=== PATIENT | female | born 1980 | race Caucasian/White ===

== ENCOUNTER 2017-09-07 12:17 | Inpatient (IN) | payer OTHER ==
[~2017-09-07] VITALS: Ht 157.5 cm; Wt 90.0 kg
[~2017-09-07 12:17] MED LIST: CETI10CA; DIPH-232; IBUP-1542 PO; LEVO200T45 PO; LEVO75TA5 PO; NAPR-260 PO; RABE20TA9; RANI300T; TERB250T9 PO; TRAM50TA2 PO
[2017-09-07 12:19] VITALS: Ht 157.5 cm; Wt 90.0 kg
[2017-09-07] MEDS ORDERED: KETOROLAC 15 MG INJ IV STA (12:26)
[2017-09-07] MEDS ORDERED: SOD CHLORIDE 0.9% 1,000 ML IV STA (12:26)
[2017-09-07] MEDS ORDERED: ONDANSETRON 4 MG INJ IV STA (12:26)
[2017-09-07] MEDS ORDERED: METOCLOPRAMIDE 10 MG INJ ONE (12:52)
[2017-09-07] MEDS ORDERED: METOCLOPRAMIDE 10 MG INJ IV ONE (13:00)
[2017-09-07 13:05] LABS: BASOPHILS % 0.2 % (0.0-2.0); EOSINOPHILS % 0.2 % (0.0-7.0); HEMATOCRIT 40.6 % (37.0-47.0); HEMOGLOBIN 13.2 g/dl (12.0-16.0); LYMPHOCYTES # 0.9 10^3/ul (0.8-2.9); LYMPHOCYTES % 8.5 % (15.0-51.0); MEAN CORPUSCULAR HEMOGLOBIN 30.5 pg (29.0-33.0); MEAN CORPUSCULAR HGB CONC 32.5 g/dl (32.0-37.0); MEAN CORPUSCULAR VOLUME 93.8 fl (82.0-101.0); MEAN PLATELET VOLUME 10.3 fl (7.4-10.4); MONOCYTE # 0.4 10^3/ul (0.3-0.9); MONOCYTES % 3.9 % (0.0-11.0); NEUTROPHIL # 9.3 10^3/ul (1.6-7.5); NEUTROPHILS % 86.8 % (39.0-77.0); NUCLEATED RED BLOOD CELLS% 0.2 /100WBC (0.0-0.0); PLATELET COUNT 260 10^3/UL (140-415); RED BLOOD COUNT 4.33 10^6/ul (4.20-5.40); RED CELL DISTRIBUTION WIDTH 13.2 % (11.5-14.5); WHITE BLOOD COUNT 10.7 10^3/ul (4.8-10.8)
[2017-09-07 13:25] LABS: ADD UMIC NO; UR ASCORBIC ACID 40 mg/dL (NEGATIVE); UR BILIRUBIN (Dip) NEGATIVE (NEGATIVE); UR BLOOD (Dip) NEGATIVE (NEGATIVE); UR CLARITY CLEAR (CLEAR); UR COLOR YELLOW (YELLOW); UR GLUCOSE (Dip) NEGATIVE (NEGATIVE); UR KETONES (Dip) 1+ mg/dL (NEGATIVE); UR LEUKOCYTE ESTERASE (Dip) NEGATIVE Leu/ul (NEGATIVE); UR NITRITE (Dip) NEGATIVE (NEGATIVE); UR SPECIFIC GRAVITY (Dip) 1.025 (1.003-1.030); UR TOTAL PROTEIN (Dip) NEGATIVE (NEGATIVE); UR UROBILINOGEN (Dip) NEGATIVE (NEGATIVE)
[2017-09-07 13:27] LABS: ALBUMIN 4.4 g/dl (3.3-4.9); ALBUMIN/GLOBULIN RATIO 1.29; BILIRUBIN,INDIRECT 0.8 mg/dl (0-1.1); BILIRUBIN,TOTAL 0.8 mg/dl (0.2-1.3); CREATININE 1.08 mg/dl (0.44-1.00); TOTAL PROTEIN 7.8 g/dl (6.1-8.1)
[2017-09-07 13:29] LABS: UR BACTERIA FEW /HPF (NONE SEEN); UR MUCUS FEW /HPF (NONE SEEN); UR RBC 6 /HPF (0-5); UR SQUAMOUS EPITHELIAL CELL FEW /HPF (FEW)
--- NOTE | 2017-09-07 13:37 | ERD ---
ER Documentation Chief Complaint Chief Complaint LEFT FLANK PAIN SEEN AT [facility] YESTERDAY HPI 37-year-old woman with a history of recent left ureter calculus presents with continued severe left flank pain and multiple episodes of clear nonbloody nonbilious emesis. And has had multiple previous imaging studies. She is usually treated with analgesics in the ED and discharged, she states she has not yet followed up with the urologist. She does have a history of chronic recurrent ureter stones. She denies fevers or chills, no chest pain or shortness of breath, no loss of consciousness. ROS All systems reviewed and are negative except as per history of present illness. Medications Home Meds Reported Medications Levothyroxine Sodium* (Levoxyl*) 200 Mcg Tablet, 200 MCG PO DAILY 02/03/12 Naproxen* (Naprosyn*) 500 Mg Tablet, 500 MG PO BID 02/03/12 Tramadol HCl (Tramadol HCl) 50 Mg Tablet, 50 MG PO Q8 02/03/12 Ibuprofen* (Ibuprofen*) 600 Mg Tablet, 600 MG PO BID 08/26/11 Levothyroxine Sodium* (Levothyroxine Sodium*) 75 Mcg Tablet, 75 MCG PO DAILY 08/26/11 Terbinafine Hcl* (Terbinafine Hcl*) 250 Mg Tablet, 250 MG PO DAILY 08/26/11 Cetirizine Hcl* (Zyrtec*) 10 Mg Capsule 03/25/11 Diphenoxylate Hcl-Atropine (Lomotil) 1 Tab Tablet 03/25/11 Ranitidine Hcl* (Ranitidine Hcl*) 300 Mg Tablet 11/12/10 Rabeprazole Sodium* (Aciphex*) 20 Mg Tablet. 11/12/10 Allergies Allergies: Coded Allergies: Acetaminophen (Verified Allergy, Mild, 02/03/12) Latex (Verified Allergy, Mild, 02/03/12) Oxycodone (Verified Allergy, Mild, RASH, 02/03/12) Uncoded Allergies: CHLORAPREP (Allergy, Intermediate, RASH, 03/25/11) PMhx/Soc Goiter status post thyroidectomy, obesity, chronic pain syndrome, opioid dependence, previous hysterectomy and cholecystectomy, chronic left ureter stone measuring 7 x 5 mm History of Surgery: Yes (THYROIDECTOMY 08/09,HYSTERECTOMY,CHOLI., FOOT SURG X2) Anesthesia Reaction: Yes (NAUSEA) Hx Neurological Disorder: No Hx Respiratory Disorders: No Hx Cardiac Disorders: No Hx Psychiatric Problems: No Hx Miscellaneous Medical Probl: No Hx Alcohol Use: No Hx Substance Use: No Hx Tobacco Use: Yes (CIEG. 1PKG EVERY 2 DAYS) FmHx Family History: No diabetes Physical Exam Vitals Vital Signs Date Time Temp Pulse Resp B/P Pulse Ox O2 Delivery O2 Flow Rate FiO2 09/07/17 14:52 96 18 123/81 100 Room Air 09/07/17 13:08 95 17 148/78 100 Room Air 09/07/17 12:19 98.1 80 18 130/78 99 Physical Exam GENERAL: Well-developed, well-nourished, well-hydrated, crying, afebrile HEENT: Moist mucous membranes, pink conjunctiva, no cervical spine tenderness or step-off deformities, no goiter, no jaundice or icterus, extraocular movements intact without pain. No submandibular induration, and no pharyngeal erythema NEURO: Alert and oriented 3, cranial nerves II through XII intact bilaterally, pupils equal round reactive to light, no focal deficits or facial asymmetry, sensation intact distally Strength 5/5 in upper and lower extremities bilaterally CARDIAC: Regular rate and rhythm, no murmurs rubs or gallops LUNGS: Clear bilaterally no wheezing crackles or stridor ABDOMEN: Soft nontender, no guarding, no rigidity, no rebound, no psoas sign no obturator sign. Normoactive bowel sounds SKIN: Warm and dry to touch, no abrasions, contusions, or hematomas, no lacerations, no ecchymosis, no target lesions, and without ulcers EXTREMITIES: No clubbing cyanosis or edema, calves are bilaterally symmetrical, no Homans sign, no popliteal cord sign. Distal pulses equal and bilateral PSYCH: Anxious and crying Result Diagram: 09/07/17 1245 09/07/17 1245 Results 24 hrs Laboratory Tests Test 09/07/17 12:45 White Blood Count 10.710^3/ul Red Blood Count 4.3310^6/ul Hemoglobin 13.2g/dl Hematocrit 40.6% Mean Corpuscular Volume 93.8fl Mean Corpuscular Hemoglobin 30.5pg Mean Corpuscular Hemoglobin Concent 32.5g/dl Red Cell Distribution Width 13.2% Platelet Count 02344^3/UL Mean Platelet Volume 10.3fl Neutrophils % 86.8% Lymphocytes % 8.5% Monocytes % 3.9% Eosinophils % 0.2% Basophils % 0.2% Nucleated Red Blood Cells % 0.2/100WBC Neutrophils # 9.310^3/ul Lymphocytes # 0.910^3/ul Monocytes # 0.410^3/ul Eosinophils # 0.010^3/ul Basophils # 0.010^3/ul Nucleated Red Blood Cells # 0.010^3/ul Urine Color YELLOW Urine Clarity CLEAR Urine pH 6.0 Urine Specific [place] 1.025 Urine Ketones 1+mg/dL Urine Nitrite NEGATIVEmg/dL Urine Bilirubin NEGATIVEmg/dL Urine Urobilinogen NEGATIVEmg/dL Urine Leukocyte Esterase NEGATIVELeu/ul Urine Microscopic RBC 6/HPF Urine Microscopic WBC 2/HPF Urine Squamous Epithelial Cells FEW/HPF Urine Bacteria FEW/HPF Urine Mucus FEW/HPF Urine Hemoglobin NEGATIVEmg/dL Urine Glucose NEGATIVEmg/dL Urine Total Protein NEGATIVEmg/dl Sodium Level 145mmol/L Potassium Level 4.0mmol/L Chloride Level 108mmol/L Carbon Dioxide Level 24mmol/L Anion Gap 17 Blood Urea Nitrogen 11mg/dl Creatinine 1.08mg/dl Glucose Level 102mg/dl Calcium Level 9.0mg/dl Total Bilirubin 0.8mg/dl Direct Bilirubin 0.00mg/dl Indirect Bilirubin 0.8mg/dl Aspartate Amino Transf (AST/SGOT) 71IU/L Alanine Aminotransferase (ALT/SGPT) 154IU/L Alkaline Phosphatase 126IU/L Total Protein 7.8g/dl Albumin 4.4g/dl Globulin 3.40g/dl Albumin/Globulin Ratio 1.29 Lipase 60U/L Free Thyroxine 1.10ng/dl Current Medications Medications (Trade) Dose Ordered Sig/Juana Route PRN Reason Start Time Stop Time Status Last Admin Dose Admin Sodium Chloride (NS) 1,000 ml @ 1,000 mls/hr Q1H STAT IV 09/07/17 12:26 09/07/17 13:25 DC 09/07/17 13:09 Ondansetron HCl (Zofran Inj) 4 mg ONCE STAT IV 09/07/17 12:26 09/07/17 12:55 DC Ketorolac Tromethamine (Toradol) 15 mg ONCE STAT IV 09/07/17 12:26 09/07/17 12:27 DC 09/07/17 13:09 Metoclopramide HCl (Reglan) 10 mg STK-MED ONCE .ROUTE 09/07/17 12:52 09/07/17 12:53 DC Metoclopramide HCl (Reglan) 10 mg ONCE ONCE IV 09/07/17 13:00 09/07/17 13:01 DC 09/07/17 13:09 IV Flush (NS 3 ml) 3 ml PER PROTOCOL IV 09/07/17 14:30 Ondansetron HCl (Zofran Inj) 4 mg Q6H PRN IV NAUSEA AND/OR VOMITING 09/07/17 14:30 Acetaminophen (Tylenol Tab) 650 mg Q6H PRN PO PAIN LEVEL 1-3 OR FEVER 09/07/17 14:30 Acetaminophen/ Hydrocodone Bitart ([place] (5/325)) 1 tab Q6H PRN PO MODERATE PAIN LEVEL 4-6 09/07/17 14:30 Morphine Sulfate (morphine) 2 mg Q4H PRN IV SEVERE PAIN LEVEL 7-10 09/07/17 14:30 09/07/17 14:47 Docusate Sodium (Colace) 100 mg Q12H PRN PO CONSTIPATION 09/07/17 14:30 Magnesium Hydroxide (Milk Of Mag) 30 ml DAILY PRN PO CONSTIPATION 09/07/17 14:30 Sodium Biphosphate/ Sodium Phosphate (Fleet Enema) 133 ml DAILY PRN [place] CONSTIPATION 09/07/17 14:30 Heparin Sodium (Porcine) (Heparin (5000 Units/0.5 ml)) 5,000 unit Q12 SC 09/07/17 21:00 09/07/17 21:00 DC Lorazepam (Ativan) 0.5 mg Q6H PRN IV ANXIETY 09/07/17 14:30 Albuterol/ Ipratropium (Duoneb) 3 ml Q4H RESP THERAPY PRN HHN SHORTNESS OF BREATH 09/07/17 14:30 Nitroglycerin (Nitroglycerin (Sl Tab) 0.4 Mg) 1 tab Q5M PRN SL ANGINA 09/07/17 14:30 Levothyroxine Sodium (Synthroid) 75 mcg DAILY@06 PO 09/08/17 06:00 Ranitidine HCl (Zantac) 150 mg BID PO 09/07/17 21:00 Tramadol HCl 50 mg 50 mg Q8 PRN PO PAIN 09/07/17 14:30 Sodium Chloride 1,000 ml @ 100 mls/hr Q10H IV 09/07/17 14:30 09/07/17 15:00 DC Dextrose/Sodium Chloride (D5-NS) 1,000 ml @ 100 mls/hr Q10H IV 09/07/17 15:00 Nicotine (Nicoderm 14 Mg/ 24hr) 1 patch DAILY TRANSDERM 09/08/17 09:00 Mupirocin (Bactroban) 1 applic BID TOP 09/07/17 21:00 Trimethobenzamide HCl (Tigan) 200 mg Q6H PRN IM NAUSEA AND/OR VOMITING 09/07/17 16:30 Procedures/MDM IV line was established patient was placed on strategic account executive rhythm strip revealed a sinus rhythm at about 80 bpm with upright P and T waves. Patient was afebrile I administered 1 L normal saline intravenously, Toradol 15 mg IV, Reglan 10 mg IV. I reviewed CT scan report that Jen had in her possession. It was dated September 06 2017 and revealed a urinary calculus at the left UPJ measuring 7 x [address] scan imaging and ultrasound reports revealed hydronephrosis and left sided calculus CBC and electrolytes are normal, liver function tests normal, urine analysis is negative for infection. I obtained a consultation with Dr. Guerrero regarding the patient's presentation, symptomatology, and recent imaging. He agreed to consult the patient. Patient admitted to [facility]. Departure Diagnosis: Primary Impression: Left ureteral calculus Additional Impressions: Intractable pain Intractable vomiting Vomiting type: unspecified Nausea presence: with nausea Qualified Code: R11.2 - Intractable vomiting with nausea, unspecified vomiting type Condition: JAMESON Castaneda MD Sep 07, 2017 13:37
[2017-09-07] MEDS ORDERED: ALBUTEROL/IPRATROPIUM (NEB) 3 ML AMP HHN PRN (14:30)
[2017-09-07] MEDS ORDERED: LORAZEPAM 2 MG INJ IV PRN (14:30)
[2017-09-07] MEDS ORDERED: NA PHOSPHATE/BIPHOS 133 ML ENEMA PR PRN (14:30)
[2017-09-07] MEDS ORDERED: MAGNESIUM HYDROXIDE 30ML CUP PO PRN (14:30)
[2017-09-07] MEDS ORDERED: ACETAMINOPHEN 325 MG TAB PO PRN (14:30)
[2017-09-07] MEDS ORDERED: NACL 0.9% 3 ML SYG IV SCH (14:30)
[2017-09-07] MEDS ORDERED: NITROGLYCERIN (SL) 0.4 MG TAB SL PRN (14:30)
[2017-09-07] MEDS ORDERED: ONDANSETRON 4 MG INJ IV PRN (14:30)
[2017-09-07] MEDS ORDERED: traMADol 50 MG TAB PO PRN (14:30)
[2017-09-07] MEDS ORDERED: SOD CHLORIDE 0.9% 1,000 ML IV SCH (14:30)
[2017-09-07] MEDS: morphine 2 MG INJ IV PRN ×2 (14:47→20:52)
--- NOTE | 2017-09-07 14:59 | HP ---
Date/Time of Note Date/Time of Note DATE: 09/07/17 TIME: 14:49 Assessment/Plan VTE Prophylaxis VTE Prophylaxis Intervention: SCD's Assessment/Plan Chief Complaint/Hosp Course Assessment and plan: 37-year-old female past medical history of left kidney stones, endometriosis who presents with left flank pain for 1 week with diagnosis of left kidney stone. 1. Left flank pain: Again likely secondary to patient's kidney stone. Patient also with some mild dysuria and hematuria, however UA is negative for any signs of infection -Admit patient, check TSH A1c lipid panel, antiemetics, pain control medications, IV fluids. -Urology consult is pending 2. Endometriosis: Patient with recent diagnosis of this. -We will continue to monitor this for now 3. Smoking history: Counseled on cessation, consider starting nicotine patch 4. Hypothyroidism: We will check thyroid panel, continue levothyroxine 5. GI prophylaxis: H2 [place] 6. DVT prophylaxis: SCDs Problems: HPI/ROS Admit Date/Time Admit Date/Time Hx of Present Illness 37-year-old female past medical history of thyroidectomy secondary to goiter in the past multiple left kidney stones endometriosis, prior foot surgery, C- section 2, who presents with left flank pain. Patient states her symptoms have been going on for the last 1 week. She has also had nonbilious nonbloody vomiting symptoms and mild dysuria as well as nausea symptoms. She also had decreased appetite secondary to vomiting symptoms. She tried Flomax which he has been taken for the last 3 years at home which did not relieve her symptoms. She proceeded to visit 3 different hospitals in the [place] going to the ER and was treated conservatively each time. She did have a CT scan as well on September 06, 2017 that revealed a urinary calculus at the left UPJ measuring 7 x 5 mm in size. Urology team was called in the emergency room to come evaluate the patient which is still pending. Patient denies chest pain or shortness of breath, no diarrhea constipation, no headaches or dizziness or loss of consciousness. She has had mild hematuria however. PMH/Family/Social Past Surgical History Foot surgery 2, LEEP, 2, cholecystectomy, hysterectomy, thyroidectomy, right kidney surgery secondary to stones Family History Significant Family History: other (Father- hypertension) Social History Smoking Status: Current every day smoker (Smokes 1 pack every 4-5 days for the last 20 years) Exam/Review of Systems Vital Signs Vitals Vital Signs Date Time Temp Pulse Resp B/P Pulse Ox O2 Delivery O2 Flow Rate FiO2 09/07/17 13:08 95 17 148/78 100 Room Air 09/07/17 12:19 98.1 Exam Exam GENERAL: Well-developed, well-nourished, well-hydrated, crying, afebrile HEENT: Moist mucous membranes, pink conjunctiva, no cervical spine tenderness or step-off deformities, no goiter, no jaundice or icterus, extraocular movements intact without pain. No submandibular induration, and no pharyngeal erythema NEURO: Alert and oriented 3, cranial nerves II through XII intact bilaterally, pupils equal round reactive to light, no focal deficits or facial asymmetry, sensation intact distally Strength 5/5 in upper and lower extremities bilaterally CARDIAC: Regular rate and rhythm, no murmurs rubs or gallops LUNGS: Clear bilaterally no wheezing crackles or stridor ABDOMEN: Soft nontender, no guarding, no rigidity, no rebound, no psoas sign no obturator sign. Normoactive bowel sounds SKIN: Warm and dry to touch, no abrasions, contusions, or hematomas, no lacerations, no ecchymosis, no target lesions, and without ulcers EXTREMITIES: No clubbing cyanosis or edema, calves are bilaterally symmetrical, no Homans sign, no popliteal cord sign. Distal pulses equal and bilateral PSYCH: less anxious and crying Labs Result Diagram: 09/07/17 1245 09/07/17 1245 Medications Medications Current Medications Ondansetron HCl (Zofran Inj) 4 mg Q6H PRN IV NAUSEA AND/OR VOMITING; Start 09/07/17 at 14:30 Acetaminophen (Tylenol Tab) 650 mg Q6H PRN PO PAIN LEVEL 1-3 OR FEVER; Start 09/07/17 at 14:30 Acetaminophen/ Hydrocodone Bitart ([place] (5/325)) 1 tab Q6H PRN PO MODERATE PAIN LEVEL 4-6; Start 09/07/17 at 14:30 Morphine Sulfate (morphine) 2 mg Q4H PRN IV SEVERE PAIN LEVEL 7-10; Start 09/07 at 14:30 Docusate Sodium (Colace) 100 mg Q12H PRN PO CONSTIPATION; Start 09/07/17 at 14: 30 Magnesium Hydroxide (Milk Of Mag) 30 ml DAILY PRN PO CONSTIPATION; Start at 14:30 Sodium Biphosphate/ Sodium Phosphate (Fleet Enema) 133 ml DAILY PRN [place] CONSTIPATION; Start 09/07/17 at 14:30 Heparin Sodium (Porcine) (Heparin (5000 Units/0.5 ml)) 5,000 unit Q12 SC ; Start 09/07/17 at 21:00 Lorazepam (Ativan) 0.5 mg Q6H PRN IV ANXIETY; Start 09/07/17 at 14:30 Nitroglycerin (Nitroglycerin (Sl Tab) 0.4 Mg) 1 tab Q5M PRN SL ANGINA; Start 09/07/17 at 14:30 Levothyroxine Sodium (Synthroid) 75 mcg DAILY@06 PO ; Start 09/08/17 at 06:00 Ranitidine HCl (Zantac) 150 mg BID PO ; Start 09/07/17 at 21:00 Tramadol HCl 50 mg 50 mg Q8 PRN PO PAIN; Start 09/07/17 at 14:30 Sodium Chloride (NS) 1,000 ml @ 100 mls/hr Q10H IV ; Start 09/07/17 at 14:30 AUSTEN ALVARENGA Sep 07, 2017 14:59
[2017-09-07] MEDS ORDERED: TRIMETHOBENZAMIDE 100 MG/ML VIAL IM PRN (16:30)
[2017-09-07 16:51] VITALS: TEMP 98.5
--- NOTE | 2017-09-07 16:52 | RADRPT ---
PROCEDURE: XR Abdomen. CLINICAL INDICATION: Left renal stone TECHNIQUE: AP abdomen x-ray. COMPARISON: None. FINDINGS: 9 mm calcification over the left renal shadow. No calcifications over the right renal shadow. Cholec ystectomy clips. The bowel gas pattern is normal. There is no evidence of obstruction. Normal coloni c stool burden. IMPRESSION: 9 mm calcification over left renal shadow. RPTAT:AAJJ Physician Chandan Date Time Electronically viewed and signed by Cheryl Salazar Physician on 09/07/2017 16:51 /
[2017-09-07 17:06] LABS: INR 0.99; PROTIME 13.1 Sec (12.2-14.2)
[2017-09-07 17:07] LABS: PARTIAL THROMBOPLASTIN TIME 32.7 Sec (25.0-35.0)
[2017-09-07] MEDS: DEXTROSE 5%-0.9% NACL 1,000 ML IV SCH (17:21)
--- NOTE | 2017-09-07 19:34 | CONS ---
DATE OF ADMISSION: 09/07/2017 DATE OF CONSULTATION: 09/07/2017 REQUESTING PHYSICIAN: Dr. Orlando. HISTORY OF PRESENT ILLNESS: This is a 37-year-old female who is known to me from before and who pre sented to the emergency room at [facility] complaining of left flank pain. The obinna knox has been to 3 different hospitals recently because of the flank pain and had a CT scan which s howed a 7 x 5 mm stone at the left ureteropelvic junction. The patient did have the stone in the ki [place] earlier. PAST MEDICAL HISTORY: The patient also does have a history of endometriosis, and the patient has a history of hypothyroidism. She did have a thyroidectomy. PAST SURGICAL HISTORY: She did have foot surgery x2, x2, cholecystectomy, hysterectomy, t hyroidectomy and kidney surgery on the right side because of the stones. SOCIAL HISTORY: She smokes about 1 pack of cigarettes every 4 to 5 days for the past 20 years. ALLERGIES: THE PATIENT IS ALLERGIC TO ACETAMINOPHEN, CHLORAPREP, LATEX AND OXYCODONE. She suffers from morbid obesity. She weighs about 90 kilograms. PHYSICAL EXAMINATION: GENERAL: Reveals a 37-year-old female who presently is reasonably comfortable. VITAL SIGNS: Her temperature is 98.5, pulse is 94, respiration Is 17, blood pressure 127/79. HEAD AND NECK: Unremarkable. She does have a scar from prior thyroidectomy. ABDOMEN: Very obese. EXTREMITIES: There is no edema but again obesity. LABORATORY DATA: Her CBC shows a white count of 10.7, hemoglobin 13.2, hematocrit 40.6. BUN is 11, creatinine 1.08, sodium 145, potassium 4.0, chloride 108, CO2 24. PT 13.1, INR 0.99. Urine shows 6 RBCs per high-power field. I did earlier order a KUB for her and on the KUB one could see a 9 mm calcification over the left renal shadow which is at the left UPJ area. IMPRESSION: A 9 mm stone at the left ureteropelvic junction with obstruction. PLAN: For tonight, she could eat and keep her n.p.o. after midnight and tomorrow repeat the KUB and if the stone is still in the same location, we may do extracorporeal shockwave lithotripsy if a mauri e and surgery is available and if we could get the machine. Otherwise, will have to do it another d ay and continue her with pain medications. I will follow her urological problem with you. I do gordy nk you for allowing me to help in her care. Dictated By: EMILY RIOS/MIAH Conf#: [id number] DID#: [id number]
[2017-09-07] MEDS ORDERED: HEPARIN 5,000 UNIT/0.5 ML VIAL SC SCH (21:00)
[2017-09-07] MEDS ORDERED: CARI350T PO (21:03)
[2017-09-07] MEDS ORDERED: LORA1TAB PO (21:03)
[2017-09-07] MEDS ORDERED: CARI350T29 PO (21:03)
[2017-09-07] MEDS ORDERED: MUPI22OI2 TOP (21:13)
[2017-09-07] MEDS ORDERED: TAMS0.4C2 PO (21:13)
[2017-09-07] MEDS ORDERED: METO10TA96 PO (21:13)
[2017-09-07] MEDS ORDERED: LEVO300T PO (21:42)
[2017-09-07] MEDS ORDERED: LEVOTHYROXINE 100 MCG TAB PO SCH (22:00)
[2017-09-07] MEDS: HYDROCODONE/APAP (5/325) TAB PO PRN (22:00)
[2017-09-07 22:15] VITALS: BP 141/82; RESP 19
[2017-09-07] MEDS: DOCUSATE SODIUM 100 MG CAP PO PRN (22:40)
[2017-09-07] MEDS: RANITIDINE 150 MG TAB PO SCH (22:40)
[2017-09-07] MEDS: MUPIROCIN 2% 22 GM OINT TOP SCH (22:40)
[2017-09-07] MEDS: LEVOTHYROXINE 125 MCG TAB PO SCH (22:40)
[2017-09-07 23:20] VITALS: BP 137/84; RESP 19
[2017-09-08] VITALS (14 sets, daily range): BP systolic 109–160; BP diastolic 64–85; PULSE 78–98; RESP 15–32
[2017-09-08] MEDS: METOCLOPRAMIDE 10 MG INJ IV PRN ×2 (00:41→10:13)
[2017-09-08] MEDS: morphine 2 MG INJ IV PRN ×3 (00:41→14:10)
[2017-09-08] MEDS: DEXTROSE 5%-0.9% NACL 1,000 ML IV SCH ×4 (01:00→21:00)
[2017-09-08] MEDS: HYDROCODONE/APAP (5/325) TAB PO PRN ×2 (03:51→10:01)
[2017-09-08 05:11] LABS: BASOPHILS % 0.2 % (0.0-2.0); EOSINOPHILS % 0.2 % (0.0-7.0); HEMATOCRIT 34.5 % (37.0-47.0); HEMOGLOBIN 11.1 g/dl (12.0-16.0); LYMPHOCYTES # 1.5 10^3/ul (0.8-2.9); LYMPHOCYTES % 12.3 % (15.0-51.0); MEAN CORPUSCULAR HEMOGLOBIN 30.5 pg (29.0-33.0); MEAN CORPUSCULAR HGB CONC 32.2 g/dl (32.0-37.0); MEAN CORPUSCULAR VOLUME 94.8 fl (82.0-101.0); MEAN PLATELET VOLUME 10.3 fl (7.4-10.4); MONOCYTE # 0.7 10^3/ul (0.3-0.9); NEUTROPHIL # 9.9 10^3/ul (1.6-7.5); PLATELET COUNT 222 10^3/UL (140-415); RED BLOOD COUNT 3.64 10^6/ul (4.20-5.40); RED CELL DISTRIBUTION WIDTH 13.2 % (11.5-14.5); WHITE BLOOD COUNT 12.3 10^3/ul (4.8-10.8)
[2017-09-08 05:40] LABS: CHOL/HDL RATIO 4.9 RATIO
[2017-09-08 05:42] LABS: ALBUMIN 3.9 g/dl (3.3-4.9); ALBUMIN/GLOBULIN RATIO 1.25; BILIRUBIN,INDIRECT 0.6 mg/dl (0-1.1); BILIRUBIN,TOTAL 0.6 mg/dl (0.2-1.3); CALCIUM 8.4 mg/dl (8.4-10.2); CREATININE 1.01 mg/dl (0.44-1.00)
[2017-09-08] MEDS ORDERED: LEVOTHYROXINE 75 MCG TAB PO SCH (06:00)
[2017-09-08 06:05] LABS: THYROID STIMULATING HORMONE 2.14 MIU/L (0.465-4.680)
--- NOTE | 2017-09-08 06:34 | RADRPT ---
PROCEDURE: XR Chest. CLINICAL INDICATION: Preoperative cardiovascular screening TECHNIQUE: AP Portable chest. COMPARISON: None available FINDINGS: The soft tissues and bones are normal. Discoid atelectasis is noted in the right costophrenic angle. The mediastinum and heart are remarkable for mild vascular calcifications of the thoracic aorta an d prominence in the right azygos region which may reflect a prominent vein or node. The heart size i s normal. No pleural effusions or pneumothorax is present. IMPRESSION: 1. Right costophrenic angle discoid atelectasis. 2. Mild atherosclerotic vascular disease and prominent azygos region. Recommend PA and lateral ches t x-ray to further evaluate as may represent a prominent azygos vein or node. RPTAT: HDC .Yvonne Knight MD, Date Time Electronically viewed and signed by .Yvonne Knight MD, on 09/08/2017 06:33 .C/
--- NOTE | 2017-09-08 06:37 | RADRPT ---
PROCEDURE: XR Abdomen. CLINICAL INDICATION: Left ureteral stone TECHNIQUE: Two AP views of the abdomen were obtained COMPARISON: X-ray abdomen dated 09/07/2017 FINDINGS: There is a nonobstructive bowel gas pattern. There is a 7 mm calcification within the left abdomen a t the level of the superior endplate of L3. Surgical clips are seen within the right upper quadrant. Additional calcifications are seen within the descending colon and within the pelvis. The visualiz ed portions of the lung bases are clear. The osseous structures are unremarkable. IMPRESSION: Left mid abdominal 7 mm calcification, likely corresponding to known ureteral stone, now seen at the superior endplate of L3, approximately 2.5 cm distal to the prior examination. RPTAT: HH .Xiomara Chiang MD, Date Time Electronically viewed and signed by .Xiomara Chiang MD, on 09/08/2017 06:36 .G/
[2017-09-08] MEDS: RANITIDINE 150 MG TAB PO SCH (08:34)
[2017-09-08] MEDS: NICOTINE (14 MG/24 HR) PATCH TRANSDERM SCH (09:00)
[2017-09-08] MEDS: MUPIROCIN 2% 22 GM OINT TOP SCH ×2 (09:00→21:00)
--- NOTE | 2017-09-08 14:24 | PN ---
Date/Time of Note Date/Time of Note DATE: 09/08/17 TIME: 14:23 Assessment/Plan VTE Prophylaxis VTE Prophylaxis Intervention: SCD's Lines/Catheters IV [facility]ter Type (from [facility]): Peripheral IV Urinary Cath still in place: No Assessment/Plan Chief Complaint/Hosp Course Assessment and plan: 37-year-old female past medical history of left kidney stones, endometriosis who presents with left flank pain for 1 week with diagnosis of left kidney stone. 1. Left flank pain: Again likely secondary to patient's kidney stone. Patient also with some mild dysuria and hematuria, however UA is negative for any signs of infection -For cystoscopy and lithotripsy later today, follow-up final post procedure recommendations -follow-up TSH A1c lipid panel, antiemetics, pain control medications, IV fluids. -Follow-up urology recommendations 2. Endometriosis: Patient with recent diagnosis of this. -We will continue to monitor this for now 3. Smoking history: Counseled on cessation - nicotine patch 4. Hypothyroidism: Follow-up thyroid panel, continue levothyroxine 5. GI prophylaxis: H2 francisco 6. DVT prophylaxis: SCDs Problems: Subjective 24 Hr Interval Summary Free Text/Dictation Still having some abdominal pain, improved with pain control medications. No acute events overnight. Awaiting lithotripsy and cystoscopy for later today. Exam/Review of Systems Vital Signs Vitals Vital Signs Date Time Temp Pulse Resp B/P Pulse Ox O2 Delivery O2 Flow Rate FiO2 09/08/17 08:04 98.0 89 19 132/76 98 09/07/17 20:52 Room Air Intake and Output 09/07/17 09/07/17 09/08/17 15:00 23:00 07:00 Intake Total 1510 ml Output Total 450 ml Balance 1060 ml Exam GENERAL: Well-developed, well-nourished, well-hydrated, crying, afebrile HEENT: Moist mucous membranes, pink conjunctiva, no cervical spine tenderness or step-off deformities, no goiter, no jaundice or icterus, extraocular movements intact without pain. No submandibular induration, and no pharyngeal erythema NEURO: Alert and oriented 3, cranial nerves II through XII intact bilaterally, pupils equal round reactive to light, no focal deficits or facial asymmetry, sensation intact distally Strength 5/5 in upper and lower extremities bilaterally CARDIAC: Regular rate and rhythm, no murmurs rubs or gallops LUNGS: Clear bilaterally no wheezing crackles or stridor ABDOMEN: Soft nontender, no guarding, no rigidity, no rebound, no psoas sign no obturator sign. Normoactive bowel sounds SKIN: Warm and dry to touch, no abrasions, contusions, or hematomas, no lacerations, no ecchymosis, no target lesions, and without ulcers EXTREMITIES: No clubbing cyanosis or edema, calves are bilaterally symmetrical, no Homans sign, no popliteal cord sign. Distal pulses equal and bilateral PSYCH: less anxious and crying Results Result Diagram: 09/08/1743909/08/17439 Results 24 hrs Laboratory Tests Test 09/08/17 04:40 White Blood Count 12.3 H Red Blood Count 3.64 L Hemoglobin 11.1 L Hematocrit 34.5 L Mean Corpuscular Volume 94.8 Mean Corpuscular Hemoglobin 30.5 Mean Corpuscular Hemoglobin Concent 32.2 Red Cell Distribution Width 13.2 Platelet Count 222 Mean Platelet Volume 10.3 Neutrophils % 81.0 H Lymphocytes % 12.3 L Monocytes % 6.0 Eosinophils % 0.2 Basophils % 0.2 Nucleated Red Blood Cells % 0.0 Neutrophils # 9.9 H Lymphocytes # 1.5 Monocytes # 0.7 Eosinophils # 0.0 Basophils # 0.0 Nucleated Red Blood Cells # 0.0 Sodium Level 143 Potassium Level 4.0 Chloride Level 108 Carbon Dioxide Level 24 Anion Gap 15 Blood Urea Nitrogen 10 Creatinine 1.01 H Glucose Level 105 Hemoglobin A1c 4.9 Calcium Level 8.4 Total Bilirubin 0.6 Direct Bilirubin 0.00 Indirect Bilirubin 0.6 Aspartate Amino Transf (AST/SGOT) 31 Alanine Aminotransferase (ALT/SGPT) 113 H Alkaline Phosphatase 112 Total Protein 7.0 Albumin 3.9 Globulin 3.10 Albumin/Globulin Ratio 1.25 Triglycerides Level 107 Cholesterol Level 168 LDL Cholesterol, Calculated 113 HDL Cholesterol 34 Cholesterol/HDL Ratio 4.9 Thyroid Stimulating Hormone (TSH) 2.140 Medications Medications Current Medications Acetaminophen (Tylenol Tab) 650 mg Q6H PRN PO PAIN LEVEL 1-3 OR FEVER; Start 09/07/17 at 14:30 Morphine Sulfate (morphine) 2 mg Q4H PRN IV SEVERE PAIN LEVEL 7-10 Last administered on 09/08/17t 14:10; Admin Dose 2 MG; Start 09/07/17 at 14:30 Docusate Sodium (Colace) 100 mg Q12H PRN PO CONSTIPATION Last administered on 09/07/17 22:40; Admin Dose 100 MG; Start 09/07/17 at 14:30 Magnesium Hydroxide (Milk Of Mag) 30 ml DAILY PRN PO CONSTIPATION; Start at 14:30 Sodium Biphosphate/ Sodium Phosphate (Fleet Enema) 133 ml DAILY PRN [place] CONSTIPATION; Start 09/07/17 at 14:30 Lorazepam (Ativan) 0.5 mg Q6H PRN IV ANXIETY; Start 09/07/17 at 14:30 Nitroglycerin (Nitroglycerin (Sl Tab) 0.4 Mg) 1 tab Q5M PRN SL ANGINA; Start 09/07/17 at 14:30 Ranitidine HCl (Zantac) 150 mg BID PO Last administered on 09/07/17 22:40; Admin Dose 150 MG; Start 09/07/17 at 21:00 Tramadol HCl 50 mg 50 mg Q8 PRN PO PAIN Last administered on 09/07/17 23:17; Admin Dose 50 MG; Start 09/07/17 at 14:30 Dextrose/Sodium Chloride (D5-NS) 1,000 ml @ 100 mls/hr Q10H IV Last administered on 09/08/17 14:12; Admin Dose 100 MLS/HR; Start 09/07/17 at 15:00 Nicotine (Nicoderm 14 Mg/ 24hr) 1 patch DAILY TRANSDERM ; Start 09/08/17 at 09: 00 Mupirocin (Bactroban) 1 applic BID TOP Last administered on 09/07/17 22:40; Admin Dose 1 APPLIC; Start 09/07/17 at 21:00 Trimethobenzamide HCl (Tigan) 200 mg Q6H PRN IM NAUSEA AND/OR VOMITING; Start 09/07/17 at 16:30 Levothyroxine Sodium (Synthroid) 250 mcg HS PO Last administered on 09/07/17 22:40; Admin Dose 250 MCG; Start 09/07/17 at 22:00 Metoclopramide HCl (Reglan) 10 mg Q6H PRN IV nausea/vomiting Last administered on 09/08/17 10:13; Admin Dose 10 MG; Start 09/07/17 at 22:00 Acetaminophen/ Hydrocodone Bitart (Henderson (5/325)) 1 tab Q4 PRN PO MODERATE PAIN LEVEL 4-6 Last administered on 09/08/17t 10:01; Admin Dose 1 TAB; Start 09/08/17 at 09:43 Ondansetron HCl (Zofran Inj) 4 mg Q6H PRN IV NAUSEA AND/OR VOMITING; Start 08/15 at 14:30 AUSTEN ALVARENGA Sep 08, 2017 14:24
[2017-09-08] MEDS ORDERED: ONDANSETRON 4 MG INJ IV PRN ×2 (14:30→21:30)
[2017-09-08] MEDS ORDERED: FENTAnyl 50 MCG/ML VIAL ONE (21:06)
[2017-09-08] MEDS ORDERED: LIDOCAINE 2% (SDV) 5 ML INJ ONE (21:06)
[2017-09-08] MEDS ORDERED: MIDAZOLAM 1 MG/ML 2 ML INJ ONE ×2 (21:06→21:41)
[2017-09-08] MEDS ORDERED: PROPOFOL 20 ML ONE ×2 (21:07→21:48)
[2017-09-08] MEDS ORDERED: SUCCINYLCHOLINE CHLORIDE 100 MG/5 ML SYG IV ONE (21:07)
[2017-09-08] MEDS ORDERED: HYDROmorphONE (0.2 MG/ML) 10ML SYG IV PRN (21:30)
[2017-09-08] MEDS ORDERED: MEPERIDINE 25 MG INJ IV PRN (21:30)
[2017-09-08] MEDS ORDERED: DIPHENHYDRAMINE 50 MG INJ IV PRN (21:30)
[2017-09-08] MEDS ORDERED: FENTAnyl 50 MCG/ML VIAL IV PRN (21:30)
[2017-09-08] MEDS ORDERED: CEFAZOLIN 1 GM INJ ONE (21:47)
[2017-09-08] MEDS ORDERED: ONDANSETRON 4 MG INJ ONE (21:48)
[2017-09-08] MEDS ORDERED: ROCURONIUM 50 MG INJ ONE (21:48)
[2017-09-08] MEDS ORDERED: METOCLOPRAMIDE 10 MG INJ ONE (21:48)
[2017-09-08] MEDS ORDERED: FAMOTIDINE 20 MG INJ ONE (21:48)
[2017-09-08] MEDS ORDERED: DEXAMETHASONE 4 MG/ML 1 ML INJ ONE (21:48)
[2017-09-08] MEDS ORDERED: PHENYLephrine (100 MCG/ML) 5ML SYG ONE (21:58)
[2017-09-08] MEDS ORDERED: FUROSEMIDE 20 MG INJ ONE (22:41)
[2017-09-08] MEDS ORDERED: KETOROLAC 30 MG INJ ONE (22:56)
--- NOTE | 2017-09-08 23:18 | OPR ---
Date/Time of Note Date/Time of Note DATE: 09/08/17 TIME: 23:12 Operative Report Procedure Date: Sep 08, 2017 Preoperative Diagnosis Left upper ureteral stone Postoperative Diagnosis Left upper ureteral stone Operation/Procedure Performed Left extracorporeal shockwave lithotripsy to the stone in the left upper ureter Surgeon see signature line Corrections Lieutenant None Anesthesia Type: general Anesthesiologist: RAJ LANZA MD Estimated Blood Loss: none Transfusion none Specimen None Grafts/Implants none Complications none Pt Condition Post Procedure: stable Disposition: PACU Indications Left upper ureteral stone with hydronephrosis Procedure Description The patient was brought to the operating room positioned in the supine position on the lithotripsy machine table. She was then given general endotracheal anesthesia. Timeout was done. The patient was identified by her name, birthdate, and the procedure and the side of the procedure. The stone was then visualized with the fluoroscopy. Once the stone was localized and focused on the 2 focal points in the 2 planes the shockwave treatment was started and gradually the power was increased to 7. The stone was regularly checked and kept in the focal point of the shockwave. Since the stone was in the upper ureter a total of 3000 shockwaves were given and toward the end of the procedure the patient was given 10 mg of Lasix IV. Final picture was fluoroscopy was done and the stone appeared to have broken. The patient was then transferred to recovery room in a stable and satisfactory condition EMILY TEAGUE MD Sep 08, 2017 23:18
[2017-09-09] VITALS (10 sets, daily range): BP systolic 116–129; BP diastolic 61–77; PULSE 78–88; RESP 18–22
[2017-09-09] MEDS: DOCUSATE SODIUM 100 MG CAP PO PRN (00:25)
[2017-09-09] MEDS: LEVOTHYROXINE 125 MCG TAB PO SCH (00:25)
[2017-09-09] MEDS: RANITIDINE 150 MG TAB PO SCH ×2 (00:25→09:08)
[2017-09-09] MEDS: morphine 2 MG INJ IV PRN (00:31)
[2017-09-09] MEDS: METOCLOPRAMIDE 10 MG INJ IV PRN (05:06)
[2017-09-09] MEDS: DEXTROSE 5%-0.9% NACL 1,000 ML IV SCH ×2 (05:06→14:18)
[2017-09-09 05:57] LABS: BASOPHILS % 0.2 % (0.0-2.0); HEMATOCRIT 32.7 % (37.0-47.0); HEMOGLOBIN 10.5 g/dl (12.0-16.0); LYMPHOCYTES # 0.9 10^3/ul (0.8-2.9); LYMPHOCYTES % 7.1 % (15.0-51.0); MEAN CORPUSCULAR HEMOGLOBIN 29.9 pg (29.0-33.0); MEAN CORPUSCULAR HGB CONC 32.1 g/dl (32.0-37.0); MEAN CORPUSCULAR VOLUME 93.2 fl (82.0-101.0); MEAN PLATELET VOLUME 11.7 fl (7.4-10.4); MONOCYTE # 0.6 10^3/ul (0.3-0.9); MONOCYTES % 5.3 % (0.0-11.0); NEUTROPHIL # 10.6 10^3/ul (1.6-7.5); NEUTROPHILS % 87.1 % (39.0-77.0); PLATELET COUNT 216 10^3/UL (140-415); RED BLOOD COUNT 3.51 10^6/ul (4.20-5.40); RED CELL DISTRIBUTION WIDTH 13.2 % (11.5-14.5); WHITE BLOOD COUNT 12.2 10^3/ul (4.8-10.8)
[2017-09-09 06:26] LABS: CALCIUM 8.7 mg/dl (8.4-10.2); CREATININE 0.92 mg/dl (0.44-1.00); POTASSIUM 4.1 mmol/L (3.5-5.1)
[2017-09-09 06:39] LABS: POSITIVE DIFF @See below
[2017-09-09] MEDS: NICOTINE (14 MG/24 HR) PATCH TRANSDERM SCH (07:57)
--- NOTE | 2017-09-09 08:48 | RADRPT ---
PROCEDURE: Intraoperative imaging of the abdomen and pelvis with fluoroscopy. CLINICAL INDICATION: Abdominal pain. Fluoroscopic guidance for left urinary tract lithotripsy. In traoperative. TECHNIQUE: 9 images of the abdomen and pelvis were obtained in the operating room with an image in tensifier. No radiologist was in attendance. Fluoroscopy time is 81 seconds. COMPARISON: Abdomen x-ray dated 09/08/2017. FINDINGS: There is a calculus in the proximal left ureter which is visualized with fluoroscopy. IMPRESSION: 1. Satisfactory intraoperative imaging of the abdomen and pelvis. RPTAT: QQ .Ashkan Hussein MD, Date Time Electronically viewed and signed by .Ashkan Hussein MD, MD on 09/09/2017 08:47 .R/
--- NOTE | 2017-09-09 08:54 | RADRPT ---
PROCEDURE: XR Abdomen. CLINICAL INDICATION: Left urinary tract calculus. TECHNIQUE: AP supine abdomen x-ray. COMPARISON: 09/08/2017. FINDINGS: The bowel gas pattern is normal with no evidence of obstruction. Surgical clips are present in the right upper quadrant of the abdomen. The previously noted calculus in the proximal left ureter is once again visualized at the upper L3 l evel. The osseus structures are unremarkable. IMPRESSION: 1. Unchanged position of the left proximal ureter calculus. 2. Otherwise unremarkable study. RPTAT: QQ .Ashkan Hussein MD, MD Date Time Electronically viewed and signed by .Ashkan Hussein MD, MD on 09/09/2017 08:54 .R/
[2017-09-09] MEDS: MUPIROCIN 2% 22 GM OINT TOP SCH (09:08)
[2017-09-09] MEDS: HYDROCODONE/APAP (5/325) TAB PO PRN (09:08)
--- NOTE | 2017-09-09 11:57 | CONS ---
Date/Time of Note Date/Time of Note DATE: 09/09/17 TIME: 11:51 Consult Date/Type/Reason Admit Date/Time Sep 07, 2017 at 13:40 Initial Consult Date 09/07/17 Type of Consultation: Urology Reason for Consultation Left upper ureteral stone Ordering Provider: JAMESON PARRA Subjective Patient is status post left extracorporeal shockwave lithotripsy. She is feeling better today her pain is less and she is voiding well. She has some sore throat and that is from the endotracheal tube. She also has mild nausea Objective Vital Signs Date Time Temp Pulse Resp B/P Pulse Ox O2 Delivery O2 Flow Rate FiO2 09/09/17 07:42 98.9 79 18 120/70 98 09/09/17 05:44 Nasal Cannula 3.0 Intake and Output 09/08/17 09/08/17 09/09/17 15:00 23:00 07:00 Intake Total 850 ml 1300 ml 700 ml Output Total 900 ml 850 ml Balance 850 ml 400 ml -150 ml Exam Alert awake and in no acute distress. She has occasional cough. Abdomen is obese but soft. No flank tenderness Results/Medications Result Diagram: 09/09/17 0444 09/09/17 0444 Results 24 hrs Laboratory Tests Test 09/09/17 04:44 White Blood Count 12.2 H Red Blood Count 3.51 L Hemoglobin 10.5 L Hematocrit 32.7 L Mean Corpuscular Volume 93.2 Mean Corpuscular Hemoglobin 29.9 Mean Corpuscular Hemoglobin Concent 32.1 Red Cell Distribution Width 13.2 Platelet Count 216 Mean Platelet Volume 11.7 H Neutrophils % 87.1 H Lymphocytes % 7.1 L Monocytes % 5.3 Eosinophils % 0.0 Basophils % 0.2 Nucleated Red Blood Cells % 0.0 Neutrophils # 10.6 H Lymphocytes # 0.9 Monocytes # 0.6 Eosinophils # 0.0 Basophils # 0.0 Nucleated Red Blood Cells # 0.0 Sodium Level 142 Potassium Level 4.1 Chloride Level 108 Carbon Dioxide Level 25 Anion Gap 13 Blood Urea Nitrogen 9 Creatinine 0.92 Glucose Level 99 Calcium Level 8.7 Medications Current Medications Acetaminophen (Tylenol Tab) 650 mg Q6H PRN PO PAIN LEVEL 1-3 OR FEVER Last administered on 09/09/17t 02:53; Admin Dose 650 MG; Start 09/07/17 at 14:30 Morphine Sulfate (morphine) 2 mg Q4H PRN IV SEVERE PAIN LEVEL 7-10 Last administered on 09/09/17 00:31; Admin Dose 2 MG; Start 09/07/17 at 14:30 Docusate Sodium (Colace) 100 mg Q12H PRN PO CONSTIPATION Last administered on 09/09/17 00:25; Admin Dose 100 MG; Start 09/07/17 at 14:30 Magnesium Hydroxide (Milk Of Mag) 30 ml DAILY PRN PO CONSTIPATION; Start at 14:30 Sodium Biphosphate/ Sodium Phosphate (Fleet Enema) 133 ml DAILY PRN [place] CONSTIPATION; Start 09/07/17 at 14:30 Lorazepam (Ativan) 0.5 mg Q6H PRN IV ANXIETY; Start 09/07/17 at 14:30 Nitroglycerin (Nitroglycerin (Sl Tab) 0.4 Mg) 1 tab Q5M PRN SL ANGINA; Start 09/07/17 at 14:30 Ranitidine HCl (Zantac) 150 mg BID PO Last administered on 09/09/17 09:08; Admin Dose 150 MG; Start 09/07/17 at 21:00 Tramadol HCl 50 mg 50 mg Q8 PRN PO PAIN Last administered on 09/07/17 23:17; Admin Dose 50 MG; Start 09/07/17 at 14:30 Dextrose/Sodium Chloride (D5-NS) 1,000 ml @ 100 mls/hr Q10H IV Last administered on 09/09/17 05:06; Admin Dose 100 MLS/HR; Start 09/07/17 at 15:00 Nicotine (Nicoderm 14 Mg/ 24hr) 1 patch DAILY TRANSDERM ; Start 09/08/17 at 09: 00 Mupirocin (Bactroban) 1 applic BID TOP Last administered on 09/09/17 09:08; Admin Dose 1 APPLIC; Start 09/07/17 at 21:00 Trimethobenzamide HCl (Tigan) 200 mg Q6H PRN IM NAUSEA AND/OR VOMITING; Start 09/07/17 at 16:30 Levothyroxine Sodium (Synthroid) 250 mcg HS PO Last administered on 09/09/17 00:25; Admin Dose 250 MCG; Start 09/07/17 at 22:00 Metoclopramide HCl (Reglan) 10 mg Q6H PRN IV nausea/vomiting Last administered on 09/09/17 05:06; Admin Dose 10 MG; Start 09/07/17 at 22:00 Acetaminophen/ Hydrocodone Bitart (Victor (5/325)) 1 tab Q4 PRN PO MODERATE PAIN LEVEL 4-6 Last administered on 09/09/17 09:08; Admin Dose 1 TAB; Start 09/08/17 at 09:43 Ondansetron HCl (Zofran Inj) 4 mg Q6H PRN IV NAUSEA AND/OR VOMITING Last administered on 09/09/17 00:06; Admin Dose 4 MG; Start 09/08/17 at 14:30 Assessment/Plan Chief Complaint/Hosp Course 37-year-old female was left upper ureteral stone that was causing obstruction. She underwent left extracorporeal shockwave lithotripsy yesterday. She is doing well today, her pain is less and controlled with oral pain medication. KUB done today show the stone fragments are still in the same location as before. Hopefully she will be able to pass these fragments later on on her own. I discussed with her the result of the lithotripsy and encouraged her to drink a lot of fluids and strain her urine so if she passes the stone fragments we could send them for analysis. I will put her on tamsulosin to help with the passage of the stone fragments. Also I wrote her a prescription for pain medications and antibiotic. She may be discharged today and follow-up with me in the office in about 2 weeks. Problems: EMILY TEAGUE MD Sep 09, 2017 11:57
--- NOTE | 2017-09-09 12:09 | PDOCDIS ---
Discharge Instructions CONDITION Patient Condition: Stable HOME CARE INSTRUCTIONS: Diet Instructions: Low Fat /Cholesterol ACTIVITY: Activity Restrictions: Slowly Increase Activity FOLLOW UP/APPOINTMENTS Follow-up Plan Please take your medications as prescribed. Please follow-up with your regular doctor in the clinic in the next 1 week. AUSTEN ALVARENGA Sep 09, 2017 12:09
--- NOTE | 2017-09-09 12:13 | DS ---
Date/Time of Note Date/Time of Note DATE: 09/09/17 TIME: 12:11 Discharge Summary Admission/Discharge Info Admit Date/Time Sep 07, 2017 at 13:40 Discharge Date/Time Discharge Diagnosis 1. Left flank pain: Again likely secondary to patient's kidney stone. Status post cystoscopy and lithotripsy. 2. Endometriosis: Patient with recent diagnosis of this. 3. Smoking history: Counseled on cessation - nicotine patch 4. Hypothyroidism: continue levothyroxine Patient Condition: Stable Hospital Course 37-year-old female past medical history of thyroidectomy secondary to goiter in the past multiple left kidney stones endometriosis, prior foot surgery, C- section 2, who presents with left flank pain. Patient states her symptoms have been going on for the last 1 week. She has also had nonbilious nonbloody vomiting symptoms and mild dysuria as well as nausea symptoms. She also had decreased appetite secondary to vomiting symptoms. She tried Flomax which he has been taken for the last 3 years at home which did not relieve her symptoms. She proceeded to visit 3 different hospitals in the [place] going to the ER and was treated conservatively each time. She did have a CT scan as well on September 06, 2017 that revealed a urinary calculus at the left UPJ measuring 7 x 5 mm in size. Urology team was called in the emergency room to come evaluate the patient which is still pending. Patient denies chest pain or shortness of breath, no diarrhea constipation, no headaches or dizziness or loss of consciousness. She has had mild hematuria however. She underwent left extracorporeal shockwave lithotripsy yesterday. She is doing well today, her pain is less and controlled with oral pain medication. KUB done today show the stone fragments are still in the same location as before. Hopefully she will be able to pass these fragments later on on her own. team discussed with her the result of the lithotripsy and encouraged her to drink a lot of fluids and strain her urine so if she passes the stone fragments we could send them for analysis. will put her on tamsulosin to help with the passage of the stone fragments. Urology also wrote her a prescription for pain medications and antibiotic. She will be discharged today and follow-up with in the office in about 2 weeks. Home Meds Reported Medications Levothyroxine Sodium (Levothyroxine Sodium) 300 Mcg Tablet, 250 MCG PO QPM, #30 TAB 09/07/17 Tamsulosin Hcl* (Tamsulosin Hcl*) 0.4 Mg Cap.er.24h, 0.4 MG PO DAILY for 14 Days , CAP 09/07/17 Mupirocin* (Bactroban*) 2% -22 Gram Oint...g., 1 APPLIC TOP TID, #1 TUB APPLY TO AFFECTED AREA THREE TIMES A DAY 09/07/17 Metoclopramide Hcl* (Metoclopramide Hcl*) 10 Mg Tablet, 10 MG PO WITH MEALS BEDTIME, TAB 09/07/17 Lorazepam* (Lorazepam*) 1 Mg Tablet, 1 MG PO HS for ANXIETY, #30 TAB 09/07/17 Carisoprodol* (Carisoprodol*) 350 Mg Tablet, 350 MG PO Q8 Y for MUSCLE SPASMS, TAB 09/07/17 Naproxen* (Naprosyn*) 500 Mg Tablet, 500 MG PO BID 02/03/12 Tramadol HCl (Tramadol HCl) 50 Mg Tablet, 50 MG PO Q8 02/03/12 Ibuprofen* (Ibuprofen*) 600 Mg Tablet, 600 MG PO BID 08/26/11 Terbinafine Hcl* (Terbinafine Hcl*) 250 Mg Tablet, 250 MG PO DAILY 08/26/11 Cetirizine Hcl* (Zyrtec*) 10 Mg Capsule 03/25/11 Diphenoxylate Hcl-Atropine (Lomotil) 1 Tab Tablet 03/25/11 Ranitidine Hcl* (Ranitidine Hcl*) 300 Mg Tablet 11/12/10 Rabeprazole Sodium* (Aciphex*) 20 Mg Tablet. 11/12/10 Discontinued Reported Medications Levothyroxine Sodium* (Levoxyl*) 200 Mcg Tablet, 200 MCG PO DAILY 02/03/12 Levothyroxine Sodium* (Levothyroxine Sodium*) 75 Mcg Tablet, 75 MCG PO DAILY 08/26/11 Carisoprodol* (Soma*) 350 Mg Tablet, 350 MG PO Q8H Y for MUSCLE SPASMS for 30 Days, TAB 09/07/17 Follow-up Plan Please take your medications as prescribed. Please follow-up with your regular doctor in the clinic in the next 1 week. Primary Care Provider Salty Mathis Time spent on discharge: > 30 minutes Pending Labs Laboratory Tests Test 09/09/17 04:44 White Blood Count 12.210^3/ul (4.8-10.8) Red Blood Count 3.5110^6/ul (4.20-5.40) Hemoglobin 10.5g/dl (12.0-16.0) Hematocrit 32.7% (37.0-47.0) Mean Corpuscular Volume 93.2fl (82.0-101.0) Mean Corpuscular Hemoglobin 29.9pg (29.0-33.0) Mean Corpuscular Hemoglobin Concent 32.1g/dl (32.0-37.0) Red Cell Distribution Width 13.2% (11.5-14.5) Platelet Count 68834^3/UL (140-415) Mean Platelet Volume 11.7fl (7.4-10.4) Neutrophils % 87.1% (39.0-77.0) Lymphocytes % 7.1% (15.0-51.0) Monocytes % 5.3% (0.0-11.0) Eosinophils % 0.0% (0.0-7.0) Basophils % 0.2% (0.0-2.0) Nucleated Red Blood Cells % 0.0/100WBC (0.0-0.0) Neutrophils # 10.610^3/ul (1.6-7.5) Lymphocytes # 0.910^3/ul (0.8-2.9) Monocytes # 0.610^3/ul (0.3-0.9) Eosinophils # 0.010^3/ul (0.0-0.5) Basophils # 0.010^3/ul (0.0-0.1) Nucleated Red Blood Cells # 0.010^3/ul (0.0-0.0) Sodium Level 142mmol/L (135-144) Potassium Level 4.1mmol/L (3.5-5.1) Chloride Level 108mmol/L (97-110) Carbon Dioxide Level 25mmol/L (21-31) Anion Gap 13 (8-16) Blood Urea Nitrogen 9mg/dl (7-20) Creatinine 0.92mg/dl (0.44-1.00) Glucose Level 99mg/dl (70-220) Calcium Level 8.7mg/dl (8.4-10.2) AUSTEN ALVARENGA Sep 09, 2017 12:13
--- NOTE | 2017-09-09 14:52 | RADRPT ---
Vent Rate: 76 bpm RR Interval: 0 msec MT Interval: 130 msec QRS Duration: 106 msec QT Interval: 390 msec QTC Interval: 438 msec P-R-T Allen: -12 - 58 - 59 degrees Normal sinus rhythm Normal ECG No previous tracing available for comparison Electronically Signed By: Cruz Goins [id number]
== END 2017-09-09 18:55 | disposition home or self-care (01) | DRG 669 ==
LOC: E/R 12:17 → MS1 13:40
PROVIDERS: ADMIT Internal Medicine; ATTEND Internal Medicine
PROC: 0TC78ZZ Extirpation of Matter from Left Ureter, Via Natural or Artificial Opening Endoscopic (ICD-10-PCS; principal; 2017-09-08 19:00)
DX: N13.2 Hydronephrosis with renal and ureteral calculous obstruction (principal); F11.20 Opioid dependence, uncomplicated; E89.0 Postprocedural hypothyroidism; R11.2 Nausea with vomiting, unspecified; F17.210 Nicotine dependence, cigarettes, uncomplicated; G89.4 Chronic pain syndrome; Z90.49 Acquired absence of other specified parts of digestive tract; Z90.710 Acquired absence of both cervix and uterus
CPT/HCPCS: 36415; 71010; 74000; 74430; 80048; 80053; 80061; 81003; 83036; 83690; 84439; 84443; 85025; 85610; 85730; 93005; 94664; 96374; 96375; J1940; J0690; J1100; J1885; J2250; J2270; J2370; J2405; J2765; J3010; J7030; J7042

== ENCOUNTER 2017-11-03 11:59 | Day surgery (SDC) | END 2017-11-03 15:09 | disposition home or self-care (01) ==

== ENCOUNTER 2017-11-06 17:16 | Emergency (ER) | END 2017-11-06 22:33 | disposition home or self-care (01) ==

== ENCOUNTER 2017-11-08 16:37 | Emergency (ER) | END 2017-11-08 21:28 | disposition home or self-care (01) ==

== ENCOUNTER 2017-12-14 09:55 | Day surgery (SDC) | END 2017-12-14 16:53 | disposition home or self-care (01) ==

== ENCOUNTER → 2018-05-11 | Emergency (ER) | END | disposition home or self-care (01) ==

== ENCOUNTER 2018-09-19 13:59 | Day surgery (SDC) | END 2018-09-19 16:44 | disposition home or self-care (01) ==

== ENCOUNTER 2019-01-16 11:44 | Day surgery (SDC) | payer OTHER ==
[~2019-01-16] VITALS: Ht 152.4 cm; Wt 116.0 kg
[~2019-01-16 11:44] MED LIST changes: -CETI10CA; -DIPH-232; +DOCU-159 PO; +FLAX SEED OIL; -IBUP-1542 PO; +IRON; +LEVO125T71 PO; -LEVO200T45 PO; -LEVO75TA5 PO; -NAPR-260 PO; +OMEP40CA6 PO; -RABE20TA9; -RANI300T; -TERB250T9 PO; -TRAM50TA2 PO; +ZYRTEC
[2019-01-16 12:39] VITALS: Ht 152.4 cm; Wt 116.0 kg
[2019-01-16] MEDS ORDERED: BENADRYL (12:49)
[2019-01-16] MEDS ORDERED: PANTOPRAZOLE (12:49)
[2019-01-16 13:02] VITALS: BP 142/66; PULSE 85; RESP 18
--- NOTE | 2019-01-16 14:30 | PREAC ---
Date/Time of Note Date/Time of Note DATE: 01/16/19 TIME: 14: Anesthesia Eval and Record Evaluation Time Pre-Procedure Interview DATE: 01/16/19 TIME: 14:27 Age 38 Sex female NPO: 8 hrs Preoperative diagnosis Rectal lesion Planned procedure Colonoscopy Past Medical History Past Medical History: Includes Cardio: Dyslipidemia Endo: Hypothyroid GI: GERD, Morbid obesity Surgery & Anesthesia Issues No known issue Meds Anticoagulation: No Beta Yokasta within 24 hr: No Reason Beta Yokasta not given: Pt. not on B-Yokasta Reported Medications [Pantoprazole] No Conflict Check 01/16/19 [Benadryl] No Conflict Check 01/16/19 [Iron] No Conflict Check 09/19/18 Docusate Sodium* (Docusate Sodium*) 100 Mg Capsule, 100 MG PO DAILY, #30 CAP 05/12/18 Levothyroxine Sodium* (Levoxyl*) 125 Mcg Tablet, 250 MCG PO BEFORE BREAKFAST, #30 TAB 12/14/17 Discontinued Reported Medications [Flax Seed Oil] No Conflict Check 09/19/18 [Zyrtec] No Conflict Check 09/19/18 Omeprazole* (Omeprazole*) 40 Mg Capsule.dr, 40 MG PO BID, #30 CAP 12/14/17 Meds reviewed: Yes Allergies Coded Allergies: latex (Verified Allergy, Severe, 05/12/18) Uncoded Allergies: CHLORAPREP (Allergy, Intermediate, RASH, 03/25/11) Allergies Reviewed: Yes Labs/Studies Labs Reviewed: Reviewed by anesthesiologist test: Negative Studies: ECG Pre-procedure Exam Last vitals Vital Signs Date Temp Pulse Resp B/P (MAP) Pulse Ox O2 O2 Flow FiO2 Time Delivery Rate 01/16/19 98.2 85 18 142/66 98 Room Air 13:02 (91) Airway: Adequate mouth opening, Adequate thyromental dist Mallampati: Mallampati III Teeth: Normal Lung: Normal Heart: Normal ASA Physical Status ASA physical status: 3 Emergency: None Planned Anesthetic General/MAC: MAC Planned Pain Management Parenteral pain med Pre-operative Attestations Prior to commencing anesthesia and surgery, the patient was re-evaluated, there was verification of: *The patient's identity *The results of appropriate recent lab work and preoperative vital signs *The above evaluation not changing prior to induction *Anesthetic plan, risk benefits, alternative and complications discussed with patient/family; questions answered; patient/family understands, accepts and wishes to proceed. BRIANA MUNSON MD Jan 16, 2019 14:30
[2019-01-16] MEDS ORDERED: LIDOCAINE 2% (SDV) 5 ML INJ ONE (14:31)
[2019-01-16] MEDS ORDERED: PROPOFOL 60 ML ONE (14:31)
--- NOTE | 2019-01-16 14:56 | PAC ---
Date/Time of Note Date/Time of Note DATE: 01/16/19 TIME: 14:55 Post-Anesthesia Notes Post-Anesthesia Note Last documented vital signs Vital Signs Date Temp Pulse Resp B/P (MAP) Pulse Ox O2 O2 Flow FiO2 Time Delivery Rate 01/16/19 98.2 85 18 142/66 98 Room Air 13:02 (91) Activity: WNL Respiratory function: WNL Cardiovascular function: WNL Mental status: Baseline Pain reasonably controlled: Yes Hydration appropriate: Yes Nausea/Vomiting absent: Yes Comments BP:126/67, P:78, Spo2:100%, T:98,8 BRIANA MUNSON MD Jan 16, 2019 14:56
[2019-01-16 15:20] VITALS: BP 108/63; PULSE 86; RESP 18
== END 2019-01-16 15:11 | disposition home or self-care (01) ==
LOC: GIL 11:44
PROVIDERS: ATTEND Internal Medicine Gastroenterology
DX: D12.4 Benign neoplasm of descending colon (principal); D12.8 Benign neoplasm of rectum; E03.9 Hypothyroidism, unspecified
CPT/HCPCS: 45380; 88305; Z7610